=== PATIENT | male | born 1970 | race Caucasian/White ===

== ENCOUNTER 2017-05-21 16:24 | Outpatient (CLI) | payer OTHER ==
--- NOTE | 2017-05-22 16:23 | MRI Report ---
EXAM: LEFT KNEE MRI WITHOUT CONTRAST EXAM DATE: 05/21/2017 04:58 PM. CLINICAL HISTORY: PAIN IN UNSPECIFIED KNEE. COMPARISON: None. TECHNIQUE: Multiplanar, multisequence T1-weighted and fluid-sensitive sequences of the knee without c ontrast. Other: None. FINDINGS: Cruciate ligaments: Anterior and posterior cruciate ligaments appear intact. Medial meniscus: Intact. No tear is identified. Lateral meniscus: Intact. No tear is identified. Collateral limits: The medial and fibular collateral ligaments are intact. Bones and articular surfaces: Mild thinning and surface irregularity over the medial facet of the pat clarisse. No focal articular cartilage defects are identified. Marrow signal appears normal. Extensor mechanism: The patellar tendon and quadriceps insertion appear intact. Minimal edema at the suprapatellar quadriceps fat pad. IMPRESSION: 1. Mild patellar chondromalacia. 2. The menisci cruciate and collateral ligaments appear intact. [facility] MUSCULOSKE[facility] RADIOLOG[facility] SECTION Referring Provider Line: [phone] SITE ID: [id number]
== END 2017-05-21 16:25 | disposition home or self-care (01) ==
LOC: DI 16:24
PROVIDERS: ATTEND Family Medicine
DX: M22.42 Chondromalacia patellae, left knee (principal)